=== PATIENT | female | born 1950 | race Caucasian/White ===

== ENCOUNTER 2016-11-03 12:28 | Emergency (ER) | payer OTHER ==
[~2016-11-03] VITALS: Ht 157.5 cm; Wt 80.0 kg
[2016-11-03 12:43] VITALS: Ht 157.5 cm; Wt 80.0 kg
[2016-11-03 15:40] LABS: URINE BLOOD (Dip) POC Negative (NEGATIVE)
[2016-11-03] MEDS ORDERED: ATOR40TA68 PO (16:28)
[2016-11-03] MEDS ORDERED: AMLO-147 PO (16:31)
--- NOTE | 2016-11-03 16:51 | ERD ---
ER Documentation Chief Complaint Date/Time DATE: 11/03/16 TIME: 16:42 Chief Complaint refill of htn meds, off meds x 6 mos, felt dizzy x 4 days HPI This 65-year-old female presents emergency room for refill of her cholesterol medicine atorvastatin 40 mg. She also came in because she was dizzy for 4 days which has now resolved. She woke up this morning with no dizziness and felt better. She denies having any chest pain or shortness of breath. Denies nausea vomiting fever and chills. She has recently come [facility] and has established [facility] and a primary care physician has an appointment on December 01. She states that she is to be on a hypertension medication as well but does not remember what it is. She currently has no symptoms and just requests a refill for medication. ROS All systems reviewed and are negative except as per history of present illness. Medications Home Meds Active Scripts Amlodipine Besylate* (Amlodipine Besylate*) 10 Mg Tablet, 5 MG PO DAILY, #30 TAB Prov:KELLY PRO DO 11/03/16 Atorvastatin* (Atorvastatin*) 40 Mg Tablet, 40 MG PO QHS, #30 TAB Prov:KELLY PRO DO 11/03/16 PMhx/Soc History of Surgery: No Anesthesia Reaction: No Hx Neurological Disorder: No Hx Respiratory Disorders: No Hx Cardiac Disorders: Yes (HYPERTENSION) Hx Psychiatric Problems: No Hx Miscellaneous Medical Probl: Yes (PRE DIABETES, CHOLESTEROL) Hx Alcohol Use: No Hx Substance Use: No Hx Tobacco Use: No Smoking Status: Never smoker Physical Exam Vitals Vital Signs Date Time Temp Pulse Resp B/P Pulse Ox O2 Delivery O2 Flow Rate FiO2 11/03/16 12:43 98.1 87 20 172/84 99 Physical Exam Const: [] No distress Head: Atraumatic Eyes: Normal Conjunctiva ENT: Normal External Ears, Nose and Mouth. Resp: Clear to auscultation bilaterally Cardio: Regular rate and rhythm, no murmurs Skin: No petechiae or rashes Ext: No cyanosis, or edema Neur: Awake and alert and oriented 3, no focal deficit Psych: Normal Mood and Affect Results 24 hrs Laboratory Tests Test 11/03/16 15:43 Bedside Urine pH (LAB) 6.0 Bedside Urine Protein (LAB) Negative Bedside Urine Glucose (UA) Negative Bedside Urine Ketones (LAB) Negative Bedside Urine Blood Negative Bedside Urine Nitrite (LAB) Negative Bedside Urine Leukocyte Esterase (L Negative Procedures/MDM Asymptomatic elderly female with unmedicated hypertension as well as recent dizziness. Did perform an EKG as well as a urinalysis to check for those because of her dizziness. She is completely asymptomatic today. Nonischemic EKG. Discharging her with instructions to call for possibly sooner primary care follow-up as well as return to ER for any symptoms. I am discharging her with atorvastatin as well as 5 mg amlodipine daily. Departure Diagnosis: Primary Impression: Hypertension Additional Impressions: Encounter for medication refill Dizziness Condition: Stable Patient Instructions: Dizziness, Unk Cause, Hypercholesterolemia Additional Instructions: Llame al doctor MAANA y feroz albina SHIRA PARA DENTRO DE 2-3 ORTIZ.Dgale a la secretaria que nosotros le instruimos hacer esta shira.Avise o llame si buenrostro condicin se empeora antes de la shira. Regresa aqui si peor o no mejor. KELLY PRO DO Nov 03, 2016 16:51
== END 2016-11-03 16:45 | disposition home or self-care (01) ==
LOC: E/R 12:28
DX: I10 Essential (primary) hypertension (principal); Z76.0 Encounter for issue of repeat prescription
CPT/HCPCS: 81003; 93005; Z7502

== ENCOUNTER → 2017-03-09 | Outpatient (CLI) | payer MEDICARE, OTHER ==
[~2017-03-09] MED LIST: AMLO-147 PO; APRACLONIDINE 1% 0.1 ML OPH ONE; ATOR40TA68 PO; OPHTHALMIC IRRIG SOLUTION 120 ML ONE; PILOCARPINE 2% 15ML OPH ONE; PROPARACAINE 0.5% 15 ML OPH ONE
== END | disposition home or self-care (01) ==
LOC: RAD 09:52
PROVIDERS: ATTEND Ophthalmology
DX: H40.20X0 Unspecified primary angle-closure glaucoma, stage unspecified (principal)
CPT/HCPCS: 66761